=== PATIENT | female | born 1990 | race Caucasian/White ===

== ENCOUNTER → 2016-09-24 | Outpatient (CLI) | payer OTHER ==
[2016-09-24 12:58] LABS: Glucose 3 Hour, Gest 88 mg/dL
== END | disposition home or self-care (01) ==
LOC: LABWHC1 08:32
PROVIDERS: ATTEND Obstetrics & Gynecology
DX: O24.419 Gestational diabetes mellitus in pregnancy, unspecified control (principal)
CPT/HCPCS: 36415; 82951; 82952

== ENCOUNTER → 2016-10-29 | Outpatient (CLI) | payer OTHER ==
--- NOTE | 2016-10-29 12:47 | US ---
EXAMINATION TYPE: US OB anatomy transabd third trimester DATE OF EXAM: 10/29/2016 12:08 PM COMPARISON: NONE HISTORY: LGA TECHNIQUE: Transabdominal (TA) pelvic ultrasound EXAM MEASUREMENTS: GESTATIONAL AGE / DATING Physician Established: (32 weeks/4 days) EDC: 12/20/2016 Dates by LMP: (32 weeks/4 days) EDC: 12/20/2016 Dates by First Scan: no previous Dates by Current Scan for: (34 weeks/5 days) EDC: 12/05/2016 SURVEY IUP: Single PLACENTA: Anterior PREVIA: No previa LAZARA: 16.5 cm Normal CERVICAL LENGTH (transabdominal: norm > 3.0cm): 3.6 cm BIOMETRY PRESENTATION: Vertex LIE: Longitudinal BPD: 8.9 cm 36 weeks / 0 days HC: 31.8 cm 35 weeks / 5 days AC: 30.4 cm 34 weeks / 2 days FL: 6.4 cm 33 weeks / 0 days ESTIMATED WEIGHT IN GRAMS: 2393 grams ESTIMATED WEIGHT IN LBS/OZS: 5 lbs. 4 oz. WEIGHT PERCENTAGE BASED ON ESTABLISHED DATE: 88 % HC/AC: 1.05 normal FL/AC: 21 normal HEART RATE: 157 bpm RHYTHM: Normal ANATOMY SEEN (within normal limits): * Lateral Vent (< 1 cm) 0.6 cm * Cisterna Magna (< 1.1 cm) 0.7 cm * Cerebellum (varies with age) 4.4 cm Midline Falx Cavus Septi Pellucidi Four Chamber Heart Stomach Situs Nose / Lips Diaphragm Kidneys (bilateral) Bladder Cord Insert Three Vessel Cord Longitudinal Spine Transverse Spine ANATOMY NOT SEEN: Choroid Plexus (bilateral) Outflow tracts: LVOT/RVOT Arms (bilateral) Legs (bilateral) TECHNOLOGIST IMPRESSION: viable iup, growth congruent with established dates, no abnormality seen by ultrasound, some exam limitations due to advanced age and lie Single live intrauterine gestation is present. Normal cephalad presentation to fetus is seen. There i s no ultrasound evidence for placenta previa currently. Amniotic fluid index is upper limits of keron l. biometry measurements are congruent and felt upper limits of normal. Detailed anatomical man vey is suboptimal due to large gestational age, portions are suboptimal as noted above during real-ti me scanning. Still images saved show poor visualization of nose and lips. IMPRESSION: As above.
== END | disposition home or self-care (01) ==
LOC: RADUSWWP 11:42
PROVIDERS: ATTEND Obstetrics & Gynecology
DX: O36.63X0 Maternal care for excessive fetal growth, third trimester, not applicable or unspecified (principal); Z3A.34 34 weeks gestation of pregnancy
CPT/HCPCS: 76811

== ENCOUNTER 2016-12-16 07:30 | Inpatient (IN) | payer OTHER ==
[2016-12-09 11:36] VITALS: BMI 40.9
[2016-12-16] MEDS ORDERED: LACTATED RINGERS 1,000 ML IV ONE (10:34)
[2016-12-16] MEDS ORDERED: ceFAZolin 2 GM in SODIUM CHLORIDE 0.9% 100 ML IVPB ONE (10:34)
[2016-12-16] MEDS ORDERED: CITRIC ACID-SODIUM CITRATE 15 ML CUP PO ONE (10:34)
[2016-12-16] MEDS ORDERED: LACTATED RINGERS 1,000 ML IV SCH (10:45)
[2016-12-16 11:11] LABS: Basophils % (A) 0 %; CHCM 32.2; Eosinophils # (A) 0.2 k/uL (0-0.7); Eosinophils % (A) 2 %; HCT 33.7 % (34.0-46.0); HDW 3.95; HGB 10.9 gm/dL (11.4-16.0); Hypochromasia Moderate; Luc # (Auto) 0.26; Luc % (Auto) 2; Lymphocytes # (A) 2.1 k/uL (1.0-4.8); Lymphocytes % (A) 17 %; MCH 25.1 pg (25.0-35.0); MCHC 32.3 g/dL (31.0-37.0); MCV 77.8 fL (80.0-100.0); Mean Platelet Volume 7.2; Monocytes # (A) 0.7 k/uL (0-1.0); Monocytes % (A) 5 %; Neutrophils # (A) 9.2 k/uL (1.3-7.7); Neutrophils % (A) 74 %; Poikilocytosis Slight; RBC 4.33 m/uL (3.80-5.40); RDW 14.1 % (11.5-15.5); WBC 12.4 k/uL (3.8-10.6); WBC (Perox) 12.65
[2016-12-16] MEDS ORDERED: ONDANSETRON 4 MG/2 ML VIAL ONE (12:45)
[2016-12-16] MEDS ORDERED: MORPHINE SULFATE (PF) 0.3 MG/0.3 ML SYR ONE (12:45)
[2016-12-16] MEDS ORDERED: OXYTOCIN 10 UNIT/ML 1 ML VIAL ONE (12:45)
[2016-12-16] MEDS ORDERED: KETOROLAC 30 MG/ML 1 ML VIAL ONE (12:45)
[2016-12-16] MEDS ORDERED: ePHEDrine 50 MG/ML 1 ML AMP ONE (12:45)
[2016-12-16] MEDS ORDERED: diphenhydrAMINE 50 MG/ML 1 ML VIAL IVP PRN ×3 (13:06→13:29)
[2016-12-16] MEDS ORDERED: ONDANSETRON 4 MG/2 ML VIAL IVP PRN ×2 (13:06→13:29)
[2016-12-16] MEDS ORDERED: NALOXONE 0.4 MG/ML 1 ML VIAL IV PRN ×2 (13:06→13:29)
[2016-12-16] MEDS ORDERED: MORPHINE SULFATE 4 MG/ML SYRINGE IVP PRN (13:06)
[2016-12-16] MEDS ORDERED: ZOLPIDEM 5 MG TAB PO PRN (13:29)
[2016-12-16] MEDS ORDERED: diphenhydrAMINE 25 MG CAP PO PRN (13:29)
[2016-12-16] MEDS ORDERED: ACETAMINOPHEN TAB 325 MG TAB PO PRN (13:29)
[2016-12-16] MEDS ORDERED: SIMETHICONE 80 MG CHEWABLE PO PRN (13:29)
[2016-12-16] MEDS ORDERED: Acetaminophen-Codeine 300-30mg TAB PO PRN (13:29)
[2016-12-16] MEDS ORDERED: diphenhydrAMINE 50 MG CAP PO PRN (13:29)
[2016-12-16] MEDS ORDERED: METOCLOPRAMIDE 5 MG/ML 2 ML VIAL IVP PRN (13:29)
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
--- NOTE | 2016-12-16 13:35 | P.OP ---
Date of Procedure: 12/16/16 Preoperative Diagnosis: Intrauterine at term: Macrosomia: Family planning Postoperative Diagnosis: Same Procedure(s) Performed: Primary low transverse section with bilateral partial salpingectomy Anesthesia: spinal Surgeon: Guillaume Sams Chief Of Field Operations #1: Loli French Estimated Blood Loss (ml): 600 Pathology: other (Placenta) Condition: stable Disposition: floor Operative Findings: Male scores of 9 and 9 at one and 5 minutes Loda weight 8 lbs. 15 oz. Description of Procedure: Patient was taken to the operating suite where a spinal anesthetic was found to be adequate. She was prepped and draped in the normal sterile fashion and placed in dorsal supine position with leftward tilt. Initially a Pfannenstiel skin incision was made and this incision was then carried through to underlying layer of the fascia was second knife. Fascia was then nicked in the midline and this opening was extended laterally with Delaney scissors. Superior and inferior aspect of this incision were then grasped tented up and bluntly and sharply dissected off the rectus muscles. Rectus muscles were then divided the midline and blunt dissection through the peritoneum was made. This opening was then extended superiorly and inferiorly with good visualization of both bowel bladder. Bladder blade was then placed bladder flap identified and entered with Metzenbaum scissors and this opening was extended across face of the uterus with Metzenbaum scissors and her bladder flap was digitally created. Knife was then used to incise uterus this opening was then fully created with a hemostat and then extended bluntly. Head was then H medically delivered and mouth nares were suctioned. A nuchal cord 1 was easily reduced. Shoulders were then delivered gentle downward upper traction followed by the remainder the baby. Umbilical cord was then clamped cut usual fashion an nursery personnel was present to assume care. Placenta was then delivered intact and Pitocin was added to the IV. Uterus was then exteriorized cleared of clots and debris and closed in 1 layer with 0 Vicryl suture. Once excellent hemostasis was obtained 3-0 Vicryl was used to reapproximate the bladder flap. Attention was then turned to the fallopian tubes where first the right tube than the left tube was grasped with hemostat proxy 2 cm from uterine cornu. A window was created in the mesosalpinx with Bovie cautery and 2 proximal and 2 distal 2-0 silk sutures were placed about 2 cm apart with the intervening segment excised bilaterally. TIPS were then cauterized and blood and debris was then suctioned from the posterior cul-de-sac. Uterus was then reinserted the abdomen and peritoneal layer was closed with 3-0 Vicryl fascial layer was closed with 0 Vicryl then subcuticular tissues were reapproximated with 3-0 Vicryl and using 3 -0 Vicryl on a Munir needle skin was closed. Sponge, lap, needle counts were all correct 2 and patient was then taken to the recovery room in stable and satisfactory condition.
[2016-12-16] MEDS: KETOROLAC 30 MG/ML 1 ML VIAL IVP PRN ×2 (17:18→23:47)
[2016-12-16] MEDS: LACTATED RINGERS 1,000 ML IV SCH (18:43)
[2016-12-16] MEDS: SENNOSIDES-DOCUSATE SODIUM 1 EACH TAB PO SCH (21:44)
[2016-12-17] MEDS: KETOROLAC 30 MG/ML 1 ML VIAL IVP PRN ×2 (06:24→11:59)
[2016-12-17 08:10] LABS: Basophils % (A) 0 %; CH 24.9; CHCM 32.1; Eosinophils # (A) 0.1 k/uL (0-0.7); Eosinophils % (A) 1 %; HCT 29.6 % (34.0-46.0); HDW 4.06; HGB 9.7 gm/dL (11.4-16.0); Hypochromasia Moderate; Luc # (Auto) 0.23; Luc % (Auto) 2; Lymphocytes # (A) 1.5 k/uL (1.0-4.8); Lymphocytes % (A) 13 %; MCH 25.6 pg (25.0-35.0); MCHC 32.9 g/dL (31.0-37.0); MCV 77.7 fL (80.0-100.0); Mean Platelet Volume 7.3; Monocytes # (A) 0.7 k/uL (0-1.0); Monocytes % (A) 6 %; Neutrophils # (A) 8.7 k/uL (1.3-7.7); Neutrophils % (A) 77 %; Poikilocytosis Moderate; WBC 11.2 k/uL (3.8-10.6)
--- NOTE | 2016-12-17 08:59 | P.PN ---
Progress Note - Text 0800 Anesthesia POD 1. Patient is status post section under spinal anesthesia with intra-thecal preservative free morphine 100 g. Minimal pruritus, good post-op analgesia, and no complications.
--- NOTE | 2016-12-17 09:22 | P.PNOBGPC ---
Subjective - Subjective Principal diagnosis: postop day 1 Interval history: patient seen and evaluated postop day 1. She is doing very well. She is ambulating, voiding and she is tolerating a diet. She voices no complaints. All questions are answered for her at this time. Her heart is regular, lungs clear, extremities without pain. Abdomen is overall soft there bowel sounds noted and her incision is intact. Assessment postop day 1. Plan continue current care. Patient reports: Reports appetite normal, Reports voiding normally, Reports pain well controlled, Reports ambulating normally : doing well Objective - Vital Signs Latest vital signs: Vital Signs Temp Pulse Resp BP Pulse Ox 12/17/16 07:54 97 12/17/16 07:53 97.4 F L 92 16 118/68 12/17/16 04:00 97.7 F 92 16 120/77 99 12/17/16 00:00 97.8 F 108 H 16 115/83 99 12/16/16 20:00 97.8 F 99 16 135/84 98 12/16/16 18:06 97 12/16/16 18:00 98.0 F 78 16 131/66 97 12/16/16 15:53 97.8 F 108 H 16 127/62 97 12/16/16 15:37 98 16 125/79 96 12/16/16 15:07 112 H 16 115/68 97 12/16/16 14:52 107 H 16 109/65 97 12/16/16 14:37 98 16 115/72 98 12/16/16 14:22 92 18 127/61 99 12/16/16 14:07 93 16 126/66 99 12/16/16 14:06 93 18 126/66 99 12/16/16 13:52 93 17 112/54 99 12/16/16 13:37 96.3 F L 96 18 109/55 99 12/16/16 13:30 98 16 119/66 99 12/16/16 10:22 96.7 F L 115 H 17 135/76 99 Intake and Output 12/16/16 12/17/16 12/17/16 22:59 06:59 14:59 Intake Total 250 100 Output Total 200 200 300 Balance 50 -100 -300 Intake: Oral 250 100 Output: Urine 200 200 300 Other: # Voids 1 1 - Labs Labs: Abnormal Lab Results - Last 24 Hours (Table) 12/16/16 12/17/16 Range/Units 10:50 07:52 WBC 12.4 H 11.2 H (3.8-10.6) k/uL Hgb 10.9 L 9.7 L (11.4-16.0) gm/dL Hct 33.7 L 29.6 L (34.0-46.0) % MCV 77.8 L 77.7 L (80.0-100.0) fL Neutrophils # 9.2 H 8.7 H (1.3-7.7) k/uL
[2016-12-17] MEDS: SENNOSIDES-DOCUSATE SODIUM 1 EACH TAB PO SCH ×2 (10:20→19:53)
[2016-12-17] MEDS: ESCITALOPRAM 10 MG TAB PO SCH (10:21)
[2016-12-17] MEDS: Acetaminophen-Codeine 300-30mg TAB PO PRN (16:10)
[2016-12-17] MEDS: IBUPROFEN 600 MG TAB PO PRN (19:53)
[2016-12-17] MEDS: LACTATED RINGERS 1,000 ML IV SCH (20:19)
[2016-12-18] MEDS: Acetaminophen-Codeine 300-30mg TAB PO PRN (00:19)
[2016-12-18] MEDS: SENNOSIDES-DOCUSATE SODIUM 1 EACH TAB PO SCH (07:48)
[2016-12-18] MEDS: IBUPROFEN 600 MG TAB PO PRN (07:49)
[2016-12-18 07:53] VITALS: BP 135/83; PULSE 105; RESP 16; TEMP 97.8
--- NOTE | 2016-12-18 08:04 | P.DS ---
Providers Date of admission: 12/16/16 10:01 Expected date of discharge: 12/18/16 Attending physician: Guillaume Sams Primary care physician: Stated None Hospital Course: Jaci is doing very well postop day 2. She is ambulating, voiding, and she is tolerating her diet. She voices no complaints. She is requesting discharge home today. Prescription for Motrin and towel #3 provided. All questions are answered for her prior to the discharge. Discharge instructions were thoroughly reviewed. On physical exam vital signs are stable and afebrile. Heart regular, lungs clear, extremities without pain. Abdomen is soft incisions clean dry and intact and she does have bowel sounds. Her lochia is reported to be light. Assessment postop day 2. Plan discharged home follow up with me in 1 week. Patient Condition at Discharge: Good Plan - Discharge Summary New Discharge Prescriptions: Acetaminophen-Codeine 300-30mg [Tylenol #3] 1 tab PO Q4H PRN #30 tablet PRN Reason: Pain Ibuprofen [Motrin] 600 mg PO Q6HR PRN #30 tab PRN Reason: Pain Discharge Medication List Caq-Rets-Zitzx Acid [-U Capsule] 1 tab PO DAILY 03/07/14 [ History] Ranitidine HCl [Zantac] 150 mg PO HS 12/09/16 [History] Acetaminophen-Codeine 300-30mg [Tylenol #3] 1 tab PO Q4H PRN #30 tablet [Rx] Ibuprofen [Motrin] 600 mg PO Q6HR PRN #30 tab 12/18/16 [Rx] Follow up Appointment(s)/Referral(s): Guillaume Sams DO [Doctor of Osteopathic Medicine] - 1 Week Activity/Diet/Wound Care/Special Instructions: No heavy lifting, limit stairs and driving and pelvic rest. If any high temperatures, heavy bleeding, or severe pain call my office Discharge Disposition: HOME SELF-CARE
[2016-12-18] MEDS: ESCITALOPRAM 10 MG TAB PO SCH (09:48)
== END 2016-12-18 13:15 | disposition home or self-care (01) | DRG 766 ==
LOC: 4FBP 10:01
PROVIDERS: ADMIT Obstetrics & Gynecology; ATTEND Obstetrics & Gynecology
PROC: 0UB70ZZ Excision of Bilateral Fallopian Tubes, Open Approach (ICD-10-PCS; 2016-12-16)
PROC: 10D00Z1 Extraction of Products of Conception, Low, Open Approach (ICD-10-PCS; principal; 2016-12-16 12:57)
DX: O36.63X0 Maternal care for excessive fetal growth, third trimester, not applicable or unspecified (principal); Z86.59 Personal history of other mental and behavioral disorders; Z37.0 Single live birth; Z3A.39 39 weeks gestation of pregnancy; Z30.2 Encounter for sterilization; Z79.899 Other long term (current) drug therapy; Z91.410 Personal history of adult physical and sexual abuse
CPT/HCPCS: 85025; 86850; 86900; 86901; 88302; 88307